=== PATIENT | male | born 1960 | race Caucasian/White ===

== ENCOUNTER 2018-09-22 11:03 | Outpatient (CLI) | payer MEDICARE, MEDICAID | END 2018-09-22 23:59 | disposition home or self-care (01) | LOC: VAS 11:03 | PROVIDERS: ATTEND Orthopaedic Surgery | DX: D17.22 Benign lipomatous neoplasm of skin and subcutaneous tissue of left arm (principal); R22.32 Localized swelling, mass and lump, left upper limb; F17.200 Nicotine dependence, unspecified, uncomplicated | CPT/HCPCS: 93971 ==

== ENCOUNTER 2020-03-13 11:48 | Inpatient (IN) | payer MEDICARE ==
[2020-03-07 12:24] LABS: BASOPHILS # (AUTO) 0.1 X10'3 (0-0.2); EOSINOPHILS # (AUTO) 0.5 X10'3 (0-0.9); LYMPHOCYTES # (AUTO) 2.7 X10'3 (1.1-4.8); MEAN CORPUSCULAR HGB CONC 33.8 g/dL (33.0-36.5)
[2020-03-07 12:28] LABS: BASOPHILS % (AUTO) 0.7 % (0-1); EOSINOPHILS % (AUTO) 4.4 % (0-6); LYMPHOCYTES % (AUTO) 26.2 % (21-51); MEAN CORPUSCULAR HEMOGLOBIN 35.2 PG (27.0-31.0); MEAN PLATELET VOLUME 10.9 FL (7.4-10.4); MONOCYTES # (AUTO) 0.9 X10'3 (0-0.9); MONOCYTES % (AUTO) 8.8 % (2-12); NEUTROPHILS # (AUTO) 6.2 X10'3 (1.8-7.7); NEUTROPHILS % (AUTO) 59.9 % (42-75); PRE OP HEMATOCRIT 48.3 % (42.0-52.0); PRE OP HEMOGLOBIN 16.3 g/dL (14.0-17.9); PRE OP PLATELET COUNT 197 X10'3 (140-440); RED BLOOD COUNT 4.65 X10'6 (4.70-6.10)
[2020-03-07 12:38] LABS: ALBUMIN 3.7 G/DL (3.4-5.0); ALKALINE PHOSPHATASE 118 IU/L (46-116); BLOOD UREA NITROGEN 29 MG/DL (7-18); BUN/CREATININE RATIO 22.7 (5.4-32.0); CHLORIDE 102 MMOL/L (99-107); CREATININE 1.28 MG/DL (0.60-1.10); PRE OP ALT 48 U/L (30-65); PRE OP ANION GAP 10 (8-16); PRE OP BILIRUB, TOTAL 0.6 MG/DL (0.0-1.0); PRE OP GLUCOSE 117 MG/DL (70-104); PRE OP SODIUM 139 MMOL/L (135-145); TOTAL PROTEIN 7.4 G/DL (6.4-8.2); eGFR 57 ML/MIN
[2020-03-07 12:42] LABS: PRE OP AST 66 U/L (10-37)
[2020-03-07 12:44] LABS: PRE OP POTASSIUM 3.7 MMOL/L (3.4-5.1)
[2020-03-07 12:59] LABS: GIANT PLATELET FEW; LARGE PLATELETS MODERATE; PLATELET ESTIMATE NORMAL
[2020-03-13] VITALS (16 sets, daily range): BP systolic 111–154; BP diastolic 69–92
[~2020-03-13] VITALS: Ht 160 cm; Wt 84.9 kg
[~2020-03-13 11:48] MED LIST: ALBU18HF2 INH; BACL10TA2 PO; HYDR-4383 PO; MELO-102 PO; SIMV-42 PO; albuterol 2.5 MG/3 ML nebule NEB ONE; cefazolin/dext.iso 2gm/50ml 50 ML IV ONE; famotidine 20mg tablet PO ONE; ringers solution, lacted 1,000 ML IV SCH; tranexamic acid inj. 820 MG in normal saline 100ml IV soln 100 ML IV ONE; vancomycin 1,500 MG in NS 500ml IV soln IV ONE
[2020-03-13] MEDS ORDERED: albuterol 2.5 MG/3 ML nebule NEB ONE (13:00)
[2020-03-13] MEDS ORDERED: propofol inj 20 ML IV ONE ×2 (14:29→15:38)
[2020-03-13] MEDS ORDERED: LIDOcaine 2% (20mg/ml) 5ml vial ONE ×2 (14:29→15:38)
[2020-03-13] MEDS ORDERED: ROPIVAcaine 0.5% (5mg/ml) 30ml vial ONE ×2 (14:30→14:31)
[2020-03-13] MEDS ORDERED: ketorolac trometh. 30mg/ml inj. ONE (14:31)
[2020-03-13] MEDS ORDERED: labetalol 20mg/4ml (5mg/ml) syringe IV ONE (14:33)
[2020-03-13] MEDS ORDERED: sevoflurane 250ml liquid IH ONE (14:56)
[2020-03-13] MEDS ORDERED: dexamethasone sod phosphate 10mg/ml inj ONE (14:56)
[2020-03-13] MEDS ORDERED: fentaNYL/PF 50MCG/1 ML 2ML syringe ONE (14:58)
[2020-03-13] MEDS ORDERED: midazolam 2 mg/2 ml injection ONE (14:58)
[2020-03-13] MEDS ORDERED: ondansetron/PF 4mg/2ml inj ONE (15:37)
[2020-03-13] MEDS ORDERED: ringers solution, lacted 1,000 ML IV SCH (16:03)
[2020-03-13] MEDS ORDERED: morphine 2 MG/ML inj. syringe IV PRN (16:05)
[2020-03-13] MEDS ORDERED: ondansetron/PF 4mg/2ml inj IV PRN ×2 (16:05→18:40)
[2020-03-13] MEDS ORDERED: ROPIVAcaine 0.2% (10 MG/5 ML) BOLUS INJECTION INTERSCALE PRN (16:05)
[2020-03-13] MEDS ORDERED: labetalol 20mg/4ml (5mg/ml) syringe IV PRN (16:05)
[2020-03-13] MEDS ORDERED: hydrALAZINE 20mg/ml inj. IV PRN (16:05)
[2020-03-13] MEDS ORDERED: morphine 4 MG/ML inj SYRINge IV PRN (16:05)
[2020-03-13] MEDS ORDERED: fentaNYL/PF 50MCG/1 ML 2ML syringe IV PRN ×2 (16:05)
[2020-03-13] MEDS ORDERED: gelatin sponge, absorbable (Gelfoam 100) sponge TP ONE (16:40)
[2020-03-13] MEDS ORDERED: Thrombin (Bovine) 5,000 unit vial TP ONE (16:41)
--- NOTE | 2020-03-13 18:02 | NUR ---
Received from OR via BED, accompanied by Anesthesiologist DR JEAN and report given by Anesthesiologist. PT DROWSY, DENIES PAIN, LEFT SHOULDER W/ISLAND DRSG, ICE PACK, SHOULDER WRAP, ISB CATHETER INTACT. Addendum: 03/13/20 at 1822 by Miladis Rush RN Amended: Links added.
[2020-03-13] MEDS: ROPIVAcaine 0.2%/PF PUMP/bolus 550 ML INTERSCALE SCH ×2 (18:08→20:54)
[2020-03-13] MEDS ORDERED: magnesium hydroxide 30ml (MOM) UD suspension PO PRN (18:40)
[2020-03-13] MEDS ORDERED: bisacodyl 10mg suppository rectal RC PRN (18:40)
[2020-03-13] MEDS ORDERED: HYDROmorphone inj. 0.5 MG/0.5 ML DISP.SYRIN IV PRN (18:40)
[2020-03-13] MEDS ORDERED: diphenhydrAMINE 25mg capsule PO PRN ×2 (18:40)
[2020-03-13] MEDS ORDERED: oxyCODONE IR 5mg (immed. release) tablet PO PRN (18:40)
[2020-03-13] MEDS ORDERED: acetaminophen 325mg tablet PO PRN (18:40)
[2020-03-13] MEDS ORDERED: HYDROcodone/acetaminophen 5mg/325mg tablet PO PRN (18:40)
--- NOTE | 2020-03-13 18:52 | NUR ---
Report called to receiving nurse. Transferred via BED, 1 BAG OF PERSONAL Belongings SENT W/PT TO ROOM 4013A, RECEIVING RN AT BEDSIDE TO RECEIVE PT, CALL LIGHT GIVEN, SIDE RAILS UP X 2. Special Issues communicated to receiving nurse. YES. Addendum: 03/13/20 at 1856 by Miladis Rush RN Amended: Links added.
[2020-03-13] MEDS: potassium cl 20mEq in 1/2 NS 1,000 ML IV SCH (19:35)
[2020-03-13] MEDS ORDERED: vancomycin/NS 1 GM ADD-VANTAGE 250 ML IV SCH (20:00)
[2020-03-13] MEDS: acetaminophen 325mg tablet PO SCH (20:41)
[2020-03-13] MEDS: baclofen 10mg tablet PO SCH (20:41)
[2020-03-13] MEDS ORDERED: sennosides 8.6mg tablet PO SCH (21:00)
[2020-03-13] MEDS: albuterol 2.5 MG/3 ML nebule NEB SCH (21:05)
[2020-03-13] MEDS: ceFAZolin 1GM/D5W- ADD-VANTAGE 50 ML IV SCH (23:18)
[2020-03-14] MEDS: acetaminophen 325mg tablet PO SCH ×3 (01:37→13:28)
[2020-03-14] MEDS: oxyCODONE IR 5mg (immed. release) tablet PO PRN ×3 (01:39→11:15)
[2020-03-14 02:00] VITALS: BP 106/72
[2020-03-14] MEDS: potassium cl 20mEq in 1/2 NS 1,000 ML IV SCH ×2 (05:14→10:40)
[2020-03-14 06:00] VITALS: BP 120/69
--- NOTE | 2020-03-14 06:08 | NUR ---
Patient in room [facility] 4013. I have received report from JUAN GONZALES and had the opportunity to ask questions and assume patient care.
--- NOTE | 2020-03-14 06:14 | NUR ---
Problems reprioritized. Patient report given, questions answered & plan of care reviewed with JANET Kevin.
[2020-03-14 06:57] LABS: BASOPHILS % (AUTO) 0.1 % (0-1); EOSINOPHILS % (AUTO) 0 % (0-6); HEMATOCRIT 37.3 % (42.0-52.0); HEMOGLOBIN 12.4 g/dl (14.0-17.9); LYMPHOCYTES # (AUTO) 1.1 X10'3 (1.1-4.8); MEAN CORPUSCULAR HEMOGLOBIN 35.1 PG (27.0-31.0); MEAN CORPUSCULAR HGB CONC 33.2 g/dL (33.0-36.5); MEAN CORPUSCULAR VOLUME 105.9 FL (78-98); MEAN PLATELET VOLUME 9.7 FL (7.4-10.4); MONOCYTES # (AUTO) 0.9 X10'3 (0-0.9); MONOCYTES % (AUTO) 5.6 % (2-12); NEUTROPHILS # (AUTO) 13.6 X10'3 (1.8-7.7); NEUTROPHILS % (AUTO) 87.3 % (42-75); PLATELET COUNT 225 X10'3 (140-440); RED BLOOD COUNT 3.53 X10'6 (4.70-6.10); RED CELL DISTRIBUTION WIDTH 13.8 % (11.5-14.5); WHITE BLOOD COUNT 15.5 X10'3 (4.5-11.0)
[2020-03-14] MEDS: albuterol 2.5 MG/3 ML nebule NEB SCH (07:25)
[2020-03-14 07:28] LABS: ANION GAP 6 (8-16); CHLORIDE 108 MMOL/L (99-107); POTASSIUM 4.5 MMOL/L (3.5-5.1); SODIUM 142 MMOL/L (135-145); TOTAL CARBON DIOXIDE 28.2 MMOL/L (24-32)
[2020-03-14] MEDS ORDERED: atorvastatin 10mg tablet PO SCH (08:00)
[2020-03-14] MEDS ORDERED: aspirin 325mg tablet PO SCH (08:30)
[2020-03-14] MEDS: baclofen 10mg tablet PO SCH (08:39)
[2020-03-14] MEDS: ceFAZolin 1GM/D5W- ADD-VANTAGE 50 ML IV SCH (08:41)
[2020-03-14] MEDS: HYDROmorphone 1 mg/ml syringe IV PRN ×2 (08:43→13:28)
[2020-03-14 10:33] VITALS: BP 111/63
[2020-03-14 14:00] VITALS: BP 112/71
[2020-03-15] MEDS ORDERED: acetaminophen 325mg tablet PO PRN (18:40)
--- NOTE | 2020-03-19 10:10 | NUR ---
Case Management DC follow up: Unable to contact pt with either number. Pt might see a caller ID and rtn call.
== END 2020-03-14 15:20 | disposition home or self-care (01) | DRG 483 ==
LOC: UNDOADMIN 11:48 → PAS IN 11:48 → EDSTATUS 13:00 → PAS IN 18:40 → ORTHO 4S 18:49 → PAS IN 18:49
PROVIDERS: ADMIT Orthopaedic Surgery; ATTEND Orthopaedic Surgery
PROC: 0LS40ZZ Reposition Left Upper Arm Tendon, Open Approach (ICD-10-PCS; 2020-03-13)
PROC: 3E0T3BZ Introduction of Anesthetic Agent into Peripheral Nerves and Plexi, Percutaneous Approach (ICD-10-PCS; 2020-03-13)
PROC: 0RRK00Z Replacement of Left Shoulder Joint with Reverse Ball and Socket Synthetic Substitute, Open Approach (ICD-10-PCS; principal; 2020-03-13 14:56)
DX: S42.202A Unspecified fracture of upper end of left humerus, initial encounter for closed fracture (principal); M19.012 Primary osteoarthritis, left shoulder; J44.9 Chronic obstructive pulmonary disease, unspecified; F17.200 Nicotine dependence, unspecified, uncomplicated; I10 Essential (primary) hypertension; X58.XXXA Exposure to other specified factors, initial encounter; E66.9 Obesity, unspecified; Z68.33 Body mass index [BMI] 33.0-33.9, adult; Z88.5 Allergy status to narcotic agent; Z88.2 Allergy status to sulfonamides; Y93.89 Activity, other specified; Y92.89 Other specified places as the place of occurrence of the external cause; Y99.8 Other external cause status
CPT/HCPCS: 36415; 80051; 80053; 82948; 85025; 87081; 94640; 94760; 97161; 97530; A4565; A4618; A7000; C1776; G0378; J0690; J1100; J1170; J1885; J2001; J2250; J2405; J2704; J2795; J3010; J3370; J3480; J3490; J7040; J7120